=== PATIENT | female | born 1995 | race American Indian/Alaskan Native ===

== ENCOUNTER 2020-01-18 21:19 | Inpatient (IN) | payer OTHER, MEDICAID ==
[2020-01-18 22:44] LABS: Hematocrit 34.6 % (30.3-42.9); Hemoglobin 11.4 gm/dl (10.1-14.3); Mean Corpuscular HGB Conc 33 % (30-34); Mean Corpuscular Volume 79 fl (79-97); Platelet Count 205 K/mm3 (140-440); Red Blood Count 4.36 M/mm3 (3.65-5.03); Red Cell Distribution Width 15.1 % (13.2-15.2)
[2020-01-18] MEDS ORDERED: ePHEDrine SULFATE 50 MG/1 ML INJ IV PRN (23:04)
[2020-01-18] MEDS ORDERED: PROMETHAZINE 25 MG TAB PO PRN (23:04)
[2020-01-18] MEDS ORDERED: DINOPROSTONE 10 MG VAG SUPP VG ONE (23:04)
[2020-01-18] MEDS ORDERED: NALOXONE 0.4 MG/1 ML INJ IV PRN (23:04)
[2020-01-18] MEDS ORDERED: fentaNYL 100 MCG/2 ML INJ IV PRN (23:04)
[2020-01-18] MEDS ORDERED: MINERAL OIL 30 ML ORAL LIQD PO PRN (23:04)
[2020-01-18] MEDS ORDERED: TERBUTALINE 1 MG/1 ML INJ SUB-Q PRN (23:04)
[2020-01-18] MEDS ORDERED: TERBUTALINE 1 MG/1 ML INJ IVP PRN (23:04)
[2020-01-18] MEDS ORDERED: LIDOCAINE (2%) 20 MG/1 ML VIAL 20 ML MDV INFILTRATI ONE (23:04)
[2020-01-18] MEDS ORDERED: ONDANSETRON 4 MG/2 ML INJ IV PRN (23:04)
[2020-01-18] MEDS ORDERED: BUTORPHANOL 2 MG/1 ML INJ IV PRN (23:04)
[2020-01-18] MEDS: LACTATED RINGERS 1,000 ML IV SCH (23:41)
[2020-01-18] MEDS ORDERED: OXYTOCIN 20 UNIT/1000ML DRIP 20 UNITS/1,000 ML BAG IV SCH (23:45)
[2020-01-18] MEDS ORDERED: OXYTOCIN DRIP 30 UNITS/500 ML BAG IV SCH (23:45)
[2020-01-19] MEDS: LACTATED RINGERS 1,000 ML IV SCH ×3 (03:30→19:35)
[2020-01-19] MEDS: GENTAMICIN/NS 120MG/100ML 120 MG/100 ML BAG IV SCH ×3 (05:41→22:07)
[2020-01-19] MEDS ORDERED: GENTAMICIN 40 MG/ML VIAL 2 ML IV SCH (06:00)
[2020-01-19] MEDS: AMPICILLIN/NS 2 GM/100 ML 2 GM/100 ML BAG IV SCH ×3 (07:00→23:49)
[2020-01-19] MEDS ORDERED: miSOPROStol 25 MCG TAB PO SCH (08:00)
--- NOTE | 2020-01-19 10:30 | History and Physical Report ---
History of Present Illness Date of examination: 01/19/20 Date of admission: 01/18/20 21:19 Chief complaint: Presents for scheduled postdates induction of labor History of present illness: Transferred into care from [place] at 17 weeks; uncomplicated course. Past History Past Medical History: neurologic (migraines) Past Surgical History: no surgical history Family/Genetic History: hypertension, cancer Social history: no significant social history, single - Obstetrical History Expected Date of Delivery: 01/11/20 Actual Gestation: 41 Week(s) 1 Day(s) : 1 Medications and Allergies Allergies Allergy/AdvReac Type Severity Reaction Status Date / Time gonsalves Allergy Mild Hives Verified 01/18/20 22:08 Active Meds: Active Medications Butorphanol Tartrate (Stadol) 2 mg IV Q2H PRN PRN Reason: Pain , Severe (7-10) Ephedrine Sulfate (Ephedrine Sulfate) 10 mg IV Q2M PRN PRN Reason: Hypotension Fentanyl (Sublimaze) 100 mcg IV Q2H PRN PRN Reason: Pain,Severe (7-10) LABOR PAIN Last Admin: 01/19/20 05:09 Dose: 100 mcg Documented by: Oxytocin/Sodium Chloride (Pitocin/Ns 20 Unit/1000ml Drip) 20 units in 1,000 mls @ 125 mls/hr IV DIRECT COCO Oxytocin/Sodium Chloride (Pitocin/Ns 30 Unit/500ml) 30 units in 500 mls @ 1 mls/hr IV TITR COCO; Protocol Oxytocin/Sodium Chloride (Pitocin/Ns 30 Unit/500ml) 30 units in 500 mls @ 2 mls/hr IV TITR COCO; Protocol Lactated Ringer's (Lactated Ringers) 1,000 mls @ 125 mls/hr IV DIRECT COCO Last Admin: 01/19/20 03:30 Dose: 125 mls/hr Documented by: Ampicillin Sodium (Ampicillin/Ns 2 Gm/100 Ml) 2 gm in 100 mls @ 100 mls/hr IV Q6HR COCO; Protocol Stop: 01/21/20 00:59 Last Admin: 01/19/20 07:00 Dose: 100 mls/hr Documented by: Gentamicin Sulfate/Sodium Chloride (Gentamicin/Ns 120mg/100ml) 120 mg in 100 mls @ 100 mls/hr IV Q8HR COCO Last Admin: 06/03/20 05:41 Dose: 100 mls/hr Documented by: Mineral Oil (Mineral Oil) 30 ml PO QHS PRN PRN Reason: Constipation Misoprostol (Cytotec) 50 mcg PO Q4H COCO Naloxone HCl (Naloxone) 0.1 mg IV Q2MIN PRN PRN Reason: Res Rate </= 8 or 02 SAT < 92% Ondansetron HCl (Zofran) 4 mg IV Q8H PRN PRN Reason: Nausea And Vomiting Promethazine HCl (Phenergan) 25 mg PO Q6H PRN PRN Reason: Nausea And Vomiting Terbutaline Sulfate (Brethine) 0.25 mg SUB-Q ONCE PRN PRN Reason: Hyperstimulation/Hypertonicity Terbutaline Sulfate (Brethine) 0.25 mg IVP ONCE PRN PRN Reason: Hyperstimulation/Hypertonicity Review of Systems All systems: negative - Vital Signs Vital signs: Vital Signs Pulse Pulse Ox 79 100 01/18/20 21:48 01/18/20 21:48 Temp Pulse Resp BP Pulse Ox 99.1 F 78 20 145/97 100 01/19/20 07:21 01/19/20 09:57 01/19/20 05:09 01/19/20 09:21 01/19/20 09:57 - Physical Exam Breasts: Positive: normal Cardiovascular: Regular rate Lungs: Positive: Clear to auscultation, Normal air movement Abdomen: Positive: normal appearance, normal bowel sounds Genitourinary (Female): Positive: normal external genitalia, normal perenium Vagina: Positive: other (leaking a small amount of clear fluid) Uterus: Positive: enlarged Anus/Rectum: Positive: normal perianal skin - Obstetrical FHR: category 1 Uterine Contraction Monitor Mode: External Cervical Dilatation: 1 (leaking a small amount of clear fluid; states her waer broke at 0300) Cervical Effacement Percentage: 40 station: -3 Uterine Contraction Pattern: Regular Uterine Tone Measurement Phase: Resting Uterine Contraction Intensity: Mild Results Result Diagrams: 01/18/20 22:25 Abnormal lab results 01/18/20 Range/Units 22:25 MCH 26 L (28-32) pg All other labs normal. Assessment and Plan A: IUP @ 41 1/7 Weeks Category I Tracing PROM GBS Negative P: Admit to L&D per Routine Orders Cook's Cervical Ripening Balloon Placed Low-Dose Pitocin
[2020-01-19] MEDS ORDERED: OXYTOCIN DRIP 30 UNITS/500 ML BAG IV SCH ×2 (11:01→14:45)
[2020-01-19] MEDS ORDERED: DEXMEDETOMIDINE 200 MCG/2 ML VIAL IV ONE (14:03)
[2020-01-19] MEDS ORDERED: ePHEDrine SULFATE 50 MG/1 ML INJ IV PRN (14:27)
[2020-01-19] MEDS ORDERED: NALOXONE 2 MG/2 ML INJ IV PRN (14:27)
--- NOTE | 2020-01-19 14:27 | Anesthesia Consultation ---
Anesthesia Consult and Med Hx Date of service: 01/19/20 - Airway Anesthetic Teeth Evaluation: Good ROM Head & Neck: Adequate Mental/Hyoid Distance: Adequate Mallampati Class: Class II Intubation Access Assessment: Good - Pulmonary Exam CTA: Yes - Cardiac Exam Cardiac Exam: RRR - Pre-Operative Health Status ASA Pre-Surgery Classification: ASA2, Emergency Proposed Anesthetic Plan: Epidural, Spinal - Pulmonary Hx Asthma: No COPD: No Hx Pneumonia: No - Cardiovascular System Hx Hypertension: No - Central Nervous System Hx Seizures: No Hx Psychiatric Problems: No - Endocrine Hx Renal Disease: No Hx End Stage Renal Disease: No Hx Hypothyroidism: No Hx Hyperthyroidism: No - Hematic Hx Anemia: No Hx Sickle Cell Disease: No - Other Systems Hx Alcohol Use: No
--- NOTE | 2020-01-19 14:32 | Progress Note ---
Labor Epidural - Labor Epidural Start Time: 14:10 Stop Time: 14:20 Performed by:: ALETHEA ZENDEJAS Procedure: Patient is requesting a laboring epidural for laboring pain. Patient IDed, H&P reviewed, all questions and concerns were answered, and consent was signed. Timeout was performed at bedside. Patient in sitting position. Sterile prep and drape was performed. 3 ml of 1% lidocaine skin wheal at L 3- L 4. 18-gauge Touhy epidural needle was advanced to loss of resistance with air technique. Negative CSF negative blood. Epidural catheter advanced to 15 centimeters. Negative aspiration negative test dose. Sterile dressing applied. Patient tolerated procedure.
[2020-01-19] MEDS: fentaNYL-BUPIV 2 MCG/ML-0.125% 200 MCG/100 ML BAG EPIDURAL SCH ×2 (15:12→23:46)
--- NOTE | 2020-01-19 18:19 | Progress Note ---
Assessment and Plan A: IUP @ 41 1/ Weeks Category II Tracing GBS Negative P: Rupture Hindbag Continue Pitocin Augmentation Subjective - Subjective Date of service: 01/19/20 Interval history: Transferred into care from [place] at 17 weeks; uncomplicated course. Patient reports: movement normal, other (Resting well under epidural anesthesia) Objective - Vital Signs Vital Signs: Vital Signs - 12hr 01/19/20 01/19/20 01/19/20 06:17 06:22 06:27 Temperature Pulse Rate 63 64 70 Blood Pressure O2 Sat by Pulse 99 100 100 Oximetry 01/19/20 01/19/20 01/19/20 06:32 06:37 06:42 Temperature Pulse Rate 65 81 60 Blood Pressure O2 Sat by Pulse 100 100 100 Oximetry 01/19/20 01/19/20 01/19/20 06:47 06:52 06:57 Temperature Pulse Rate 60 58 L 59 L Blood Pressure O2 Sat by Pulse 100 100 100 Oximetry 01/19/20 01/19/20 01/19/20 07:02 07:03 07:07 Temperature Pulse Rate 65 81 71 Blood Pressure 134/65 O2 Sat by Pulse 100 100 Oximetry 01/19/20 01/19/20 01/19/20 07:12 07:17 07:20 Temperature Pulse Rate 68 59 L 62 Blood Pressure 144/82 O2 Sat by Pulse 100 100 Oximetry 01/19/20 01/19/20 01/19/20 07:21 07:22 07:27 Temperature 99.1 F Pulse Rate 58 L 59 L Blood Pressure O2 Sat by Pulse 100 100 Oximetry 01/19/20 01/19/20 01/19/20 07:32 07:37 07:42 Temperature Pulse Rate 55 L 57 L 55 L Blood Pressure O2 Sat by Pulse 100 100 100 Oximetry 01/19/20 01/19/20 01/19/20 07:47 07:52 07:57 Temperature Pulse Rate 53 L 83 71 Blood Pressure O2 Sat by Pulse 100 100 100 Oximetry 01/19/20 01/19/20 01/19/20 08:02 08:07 08:12 Temperature Pulse Rate 71 66 73 Blood Pressure O2 Sat by Pulse 100 100 100 Oximetry 01/19/20 01/19/20 01/19/20 08:17 08:21 08:22 Temperature Pulse Rate 72 65 66 Blood Pressure 157/96 O2 Sat by Pulse 100 100 Oximetry 01/19/20 01/19/20 01/19/20 08:27 08:32 08:37 Temperature Pulse Rate 67 56 L 60 Blood Pressure O2 Sat by Pulse 100 100 100 Oximetry 01/19/20 01/19/20 01/19/20 08:42 08:47 08:52 Temperature Pulse Rate 57 L 55 L 55 L Blood Pressure O2 Sat by Pulse 100 100 100 Oximetry 01/19/20 01/19/20 01/19/20 08:57 09:02 09:07 Temperature Pulse Rate 57 L 57 L 55 L Blood Pressure O2 Sat by Pulse 100 100 100 Oximetry 01/19/20 01/19/20 01/19/20 09:12 09:17 09:21 Temperature Pulse Rate 59 L 56 L 65 Blood Pressure 145/97 O2 Sat by Pulse 100 100 Oximetry 01/19/20 01/19/20 01/19/20 09:22 09:27 09:32 Temperature Pulse Rate 56 L 56 L 54 L Blood Pressure O2 Sat by Pulse 100 100 100 Oximetry 01/19/20 01/19/20 01/19/20 09:37 09:42 09:47 Temperature Pulse Rate 63 70 62 Blood Pressure O2 Sat by Pulse 100 100 100 Oximetry 01/19/20 01/19/20 01/19/20 09:52 09:57 10:50 Temperature 97.3 F L Pulse Rate 51 L 78 Blood Pressure O2 Sat by Pulse 100 100 Oximetry 01/19/20 01/19/20 01/19/20 11:16 11:21 11:26 Temperature Pulse Rate 59 L 61 52 L Blood Pressure 147/76 O2 Sat by Pulse 100 99 99 Oximetry 01/19/20 01/19/20 01/19/20 11:28 11:31 11:36 Temperature Pulse Rate 92 H 74 61 Blood Pressure O2 Sat by Pulse 83 L 100 100 Oximetry 01/19/20 01/19/20 01/19/20 11:41 11:45 11:46 Temperature Pulse Rate 57 L 57 L 54 L Blood Pressure 148/70 O2 Sat by Pulse 100 100 Oximetry 01/19/20 01/19/20 01/19/20 11:51 11:56 12:01 Temperature Pulse Rate 57 L 59 L 67 Blood Pressure O2 Sat by Pulse 98 100 100 Oximetry 01/19/20 01/19/20 01/19/20 12:06 12:11 12:15 Temperature Pulse Rate 65 58 L 56 L Blood Pressure 137/75 O2 Sat by Pulse 100 100 Oximetry 01/19/20 01/19/20 01/19/20 12:16 12:21 12:26 Temperature Pulse Rate 53 L 54 L 50 L Blood Pressure O2 Sat by Pulse 100 100 100 Oximetry 01/19/20 01/19/20 01/19/20 12:31 12:36 12:41 Temperature Pulse Rate 52 L 52 L 55 L Blood Pressure O2 Sat by Pulse 100 100 100 Oximetry 01/19/20 01/19/20 01/19/20 12:45 12:56 13:00 Temperature 97.4 F L Pulse Rate 61 Blood Pressure 159/79 O2 Sat by Pulse 86 Oximetry 01/19/20 01/19/20 01/19/20 13:01 13:05 13:10 Temperature Pulse Rate 66 93 H 67 Blood Pressure O2 Sat by Pulse 79 L 100 99 Oximetry 01/19/20 01/19/20 01/19/20 13:15 13:16 13:20 Temperature Pulse Rate 65 81 78 Blood Pressure 125/81 O2 Sat by Pulse 100 99 Oximetry 01/19/20 01/19/20 01/19/20 13:25 13:30 13:35 Temperature Pulse Rate 67 67 72 Blood Pressure O2 Sat by Pulse 99 99 99 Oximetry 01/19/20 01/19/20 01/19/20 13:40 13:45 13:46 Temperature Pulse Rate 84 67 76 Blood Pressure 119/84 O2 Sat by Pulse 98 100 Oximetry 01/19/20 01/19/20 01/19/20 13:50 13:55 14:00 Temperature Pulse Rate 76 74 73 Blood Pressure O2 Sat by Pulse 100 100 100 Oximetry 01/19/20 01/19/20 01/19/20 14:05 14:11 14:12 Temperature Pulse Rate 76 33 L Blood Pressure O2 Sat by Pulse 100 77 L 62 L Oximetry 01/19/20 01/19/20 01/19/20 14:16 14:21 14:24 Temperature Pulse Rate 109 H 97 H 108 H Blood Pressure 165/76 O2 Sat by Pulse 94 96 84 Oximetry 01/19/20 01/19/20 01/19/20 14:27 14:32 14:37 Temperature Pulse Rate 80 67 74 Blood Pressure 123/71 O2 Sat by Pulse 100 98 100 Oximetry 01/19/20 01/19/20 01/19/20 14:42 14:45 14:47 Temperature Pulse Rate 63 64 59 L Blood Pressure 111/62 O2 Sat by Pulse 98 100 Oximetry 01/19/20 01/19/20 01/19/20 14:52 14:57 15:02 Temperature Pulse Rate 56 L 57 L 57 L Blood Pressure O2 Sat by Pulse 99 99 99 Oximetry 01/19/20 01/19/20 01/19/20 15:07 15:12 15:15 Temperature Pulse Rate 55 L 54 L 54 L Blood Pressure 123/75 O2 Sat by Pulse 99 99 Oximetry 01/19/20 01/19/20 01/19/20 15:17 15:22 15:27 Temperature Pulse Rate 54 L 56 L 59 L Blood Pressure O2 Sat by Pulse 100 99 98 Oximetry 01/19/20 01/19/20 01/19/20 15:32 15:37 15:42 Temperature Pulse Rate 56 L 57 L 61 Blood Pressure O2 Sat by Pulse 99 98 98 Oximetry 01/19/20 01/19/20 01/19/20 15:45 15:47 15:52 Temperature Pulse Rate 55 L 65 68 Blood Pressure 113/72 O2 Sat by Pulse 99 80 L Oximetry 01/19/20 01/19/20 01/19/20 15:57 16:02 16:04 Temperature Pulse Rate 54 L 54 L 53 L Blood Pressure O2 Sat by Pulse 100 100 68 L Oximetry 01/19/20 01/19/20 01/19/20 16:07 16:12 16:16 Temperature Pulse Rate 55 L 52 L 52 L Blood Pressure 118/73 O2 Sat by Pulse 100 100 Oximetry 01/19/20 01/19/20 01/19/20 16:17 16:22 16:27 Temperature Pulse Rate 50 L 51 L 50 L Blood Pressure O2 Sat by Pulse 100 100 100 Oximetry 01/19/20 01/19/20 01/19/20 16:32 16:37 16:42 Temperature Pulse Rate 49 L 51 L 50 L Blood Pressure O2 Sat by Pulse 100 100 100 Oximetry 01/19/20 01/19/20 01/19/20 16:45 16:47 16:52 Temperature Pulse Rate 53 L 51 L 52 L Blood Pressure 122/73 O2 Sat by Pulse 100 100 Oximetry 01/19/20 01/19/20 01/19/20 16:57 17:00 17:02 Temperature Pulse Rate 54 L 32 L 53 L Blood Pressure O2 Sat by Pulse 100 80 L 100 Oximetry 01/19/20 01/19/20 01/19/20 17:07 17:12 17:16 Temperature Pulse Rate 50 L 50 L 49 L Blood Pressure 111/57 O2 Sat by Pulse 100 100 Oximetry 01/19/20 01/19/20 01/19/20 17:17 17:22 17:27 Temperature Pulse Rate 52 L 52 L 51 L Blood Pressure O2 Sat by Pulse 100 100 100 Oximetry 01/19/20 01/19/20 01/19/20 17:32 17:37 17:42 Temperature Pulse Rate 57 L 51 L 52 L Blood Pressure O2 Sat by Pulse 100 100 100 Oximetry 01/19/20 01/19/20 01/19/20 17:45 17:47 17:52 Temperature Pulse Rate 51 L 52 L 57 L Blood Pressure 111/59 O2 Sat by Pulse 100 100 Oximetry 01/19/20 01/19/20 01/19/20 17:57 18:02 18:07 Temperature Pulse Rate 51 L 52 L 70 Blood Pressure O2 Sat by Pulse 100 100 100 Oximetry 01/19/20 18:12 Temperature Pulse Rate 62 Blood Pressure O2 Sat by Pulse 100 Oximetry - Exam Breasts: normal Cardiovascular: Regular rate Lungs: Normal air movement Abdomen: Present: normal appearance, soft, normal bowel sounds Uterus: Present: normal, firm, fundal height above umbilicus FHR: category 2 FHR comments: FHR: 130, moderate varability, -accels, +early decels, +isolated varabile decels Uterine Contraction Monitor Mode: External Cervical Dilatation: 5 (Rupture of hindbag: large amount of clear fluid at 1815) Cervical Effacement Percentage: 70 station: -2 Uterine Contraction Pattern: Regular Uterine Tone Measurement Phase: Resting Uterine Contraction Intensity: Moderate - Labs Labs: Abnormal Labs 01/18/20 22:25 MCH 26 L Laboratory Results - last 24 hr 01/18/20 01/18/20 01/18/20 22:25 22:25 22:25 WBC 8.9 RBC 4.36 Hgb 11.4 Hct 34.6 MCV 79 MCH 26 L MCHC 33 RDW 15.1 Plt Count 205 Syphilis IgG Antibody Non-reactive Blood Type B POSITIVE Antibody Screen Negative
[2020-01-20] MEDS: LACTATED RINGERS 1,000 ML IV SCH (01:48)
[2020-01-20] MEDS: GENTAMICIN/NS 120MG/100ML 120 MG/100 ML BAG IV SCH (06:46)
[2020-01-20] MEDS: fentaNYL-BUPIV 2 MCG/ML-0.125% 200 MCG/100 ML BAG EPIDURAL SCH (08:15)
[2020-01-20] MEDS ORDERED: BICITRA ORAL LIQD 30ML PO ONE (10:29)
[2020-01-20] MEDS ORDERED: FAMOTIDINE 20 MG/2 ML INJ IV ONE ×2 (10:30→11:00)
[2020-01-20] MEDS ORDERED: METOCLOPRAMIDE 10 MG/2 ML INJ ONE (10:30)
[2020-01-20] MEDS ORDERED: BICITRA ORAL LIQD 30ML ONE (10:30)
[2020-01-20] MEDS ORDERED: ceFAZolin/Water 2 GM/20 ML 2 GM/20 ML SYRINGE IV ONE (10:31)
--- NOTE | 2020-01-20 10:32 | Progress Note ---
Subjective - Subjective Date of service: 01/20/20 Interval history: prolonged variable noted with late component cervix unchanged 9cm/100%/-1, +ve edema minimal caput plan for delivery informed consent obtained npo, on sergo to or for procedure Melinda Howard MD Patient reports: movement normal, other (Resting well under epidural anesthesia) Objective - Vital Signs Vital Signs: Vital Signs - 12hr 01/19/20 01/19/20 01/19/20 22:32 22:37 22:42 Temperature Pulse Rate 57 L 66 53 L Blood Pressure O2 Sat by Pulse 100 100 100 Oximetry 01/19/20 01/19/20 01/19/20 22:45 22:47 22:52 Temperature Pulse Rate 50 L 51 L 50 L Blood Pressure 135/73 O2 Sat by Pulse 100 100 Oximetry 01/19/20 01/19/20 01/19/20 22:57 23:02 23:07 Temperature Pulse Rate 52 L 53 L 49 L Blood Pressure O2 Sat by Pulse 100 100 100 Oximetry 01/19/20 01/19/20 01/19/20 23:12 23:15 23:17 Temperature Pulse Rate 53 L 49 L 51 L Blood Pressure 139/75 O2 Sat by Pulse 100 100 Oximetry 01/19/20 01/19/20 01/19/20 23:22 23:27 23:31 Temperature Pulse Rate 53 L 58 L 60 Blood Pressure O2 Sat by Pulse 100 100 0 L Oximetry 01/19/20 01/19/20 01/19/20 23:32 23:37 23:42 Temperature Pulse Rate 58 L 56 L 57 L Blood Pressure O2 Sat by Pulse 100 100 100 Oximetry 01/19/20 01/19/20 01/19/20 23:45 23:47 23:48 Temperature Pulse Rate 54 L 58 L 56 L Blood Pressure 142/75 O2 Sat by Pulse 87 81 L Oximetry 01/19/20 01/19/20 01/20/20 23:52 23:57 00:02 Temperature Pulse Rate 49 L 51 L 53 L Blood Pressure O2 Sat by Pulse 100 100 100 Oximetry 01/20/20 01/20/20 01/20/20 00:07 00:12 00:15 Temperature Pulse Rate 51 L 50 L 48 L Blood Pressure 147/71 O2 Sat by Pulse 100 100 Oximetry 01/20/20 01/20/20 01/20/20 00:17 00:22 00:27 Temperature Pulse Rate 52 L 50 L 49 L Blood Pressure O2 Sat by Pulse 100 100 100 Oximetry 01/20/20 01/20/20 01/20/20 00:32 00:37 00:42 Temperature Pulse Rate 53 L 55 L 52 L Blood Pressure O2 Sat by Pulse 100 100 100 Oximetry 01/20/20 01/20/20 01/20/20 00:45 00:47 00:52 Temperature Pulse Rate 50 L 55 L 53 L Blood Pressure 144/65 O2 Sat by Pulse 100 100 Oximetry 01/20/20 01/20/20 01/20/20 00:57 01:02 01:07 Temperature Pulse Rate 54 L 58 L 88 Blood Pressure O2 Sat by Pulse 100 100 100 Oximetry 01/20/20 01/20/20 01/20/20 01:12 01:17 01:22 Temperature Pulse Rate 69 65 54 L Blood Pressure 134/87 O2 Sat by Pulse 100 100 100 Oximetry 01/20/20 01/20/20 01/20/20 01:27 01:32 01:37 Temperature Pulse Rate 51 L 54 L 64 Blood Pressure O2 Sat by Pulse 100 100 100 Oximetry 01/20/20 01/20/20 01/20/20 01:42 01:46 01:47 Temperature Pulse Rate 58 L 63 66 Blood Pressure 128/82 O2 Sat by Pulse 100 100 Oximetry 01/20/20 01/20/20 01/20/20 01:52 01:57 02:02 Temperature Pulse Rate 70 58 L 62 Blood Pressure O2 Sat by Pulse 100 100 100 Oximetry 01/20/20 01/20/20 01/20/20 02:07 02:12 02:15 Temperature Pulse Rate 56 L 63 70 Blood Pressure 139/66 O2 Sat by Pulse 100 100 82 L Oximetry 01/20/20 01/20/20 01/20/20 02:17 02:22 02:27 Temperature Pulse Rate 62 57 L 54 L Blood Pressure O2 Sat by Pulse 99 100 100 Oximetry 01/20/20 01/20/20 01/20/20 02:32 02:37 02:42 Temperature Pulse Rate 56 L 51 L 73 Blood Pressure O2 Sat by Pulse 97 100 94 Oximetry 01/20/20 01/20/20 01/20/20 02:44 02:47 02:49 Temperature Pulse Rate 80 90 45 L Blood Pressure O2 Sat by Pulse 81 L 96 75 L Oximetry 01/20/20 01/20/20 01/20/20 02:52 02:57 03:01 Temperature Pulse Rate 47 L 61 46 L Blood Pressure O2 Sat by Pulse 58 L 73 L 72 L Oximetry 01/20/20 01/20/20 01/20/20 03:02 03:07 03:08 Temperature Pulse Rate 53 L 55 L 60 Blood Pressure O2 Sat by Pulse 100 90 58 L Oximetry 01/20/20 01/20/20 01/20/20 03:12 03:16 03:17 Temperature Pulse Rate 52 L 53 L 51 L Blood Pressure 151/74 O2 Sat by Pulse 100 100 Oximetry 01/20/20 01/20/20 01/20/20 03:23 03:28 03:33 Temperature Pulse Rate 51 L 53 L 50 L Blood Pressure O2 Sat by Pulse 100 100 100 Oximetry 01/20/20 01/20/20 01/20/20 03:38 03:43 03:46 Temperature Pulse Rate 50 L 54 L 51 L Blood Pressure 137/71 O2 Sat by Pulse 100 100 Oximetry 01/20/20 01/20/20 01/20/20 03:48 03:53 03:58 Temperature Pulse Rate 49 L 47 L 52 L Blood Pressure O2 Sat by Pulse 100 100 100 Oximetry 01/20/20 01/20/20 01/20/20 04:03 04:08 04:13 Temperature Pulse Rate 56 L 50 L 49 L Blood Pressure O2 Sat by Pulse 100 100 100 Oximetry 01/20/20 01/20/20 01/20/20 04:15 04:18 04:23 Temperature Pulse Rate 48 L 49 L 52 L Blood Pressure 144/74 O2 Sat by Pulse 100 100 Oximetry 01/20/20 01/20/20 01/20/20 04:29 04:34 04:39 Temperature Pulse Rate 58 L 53 L 56 L Blood Pressure O2 Sat by Pulse 100 100 100 Oximetry 01/20/20 01/20/20 01/20/20 04:44 04:46 04:49 Temperature Pulse Rate 59 L 60 80 Blood Pressure O2 Sat by Pulse 88 77 L 100 Oximetry 01/20/20 01/20/20 01/20/20 04:51 04:54 04:58 Temperature Pulse Rate 86 98 H 106 H Blood Pressure O2 Sat by Pulse 82 L 72 L 74 L Oximetry 01/20/20 01/20/20 01/20/20 05:03 05:08 05:11 Temperature Pulse Rate 73 59 L 87 Blood Pressure O2 Sat by Pulse 100 99 70 L Oximetry 01/20/20 01/20/20 01/20/20 05:13 05:17 05:18 Temperature Pulse Rate 80 57 L 69 Blood Pressure 139/78 O2 Sat by Pulse 59 L 99 Oximetry 01/20/20 01/20/20 01/20/20 05:23 05:27 05:28 Temperature Pulse Rate 60 61 66 Blood Pressure O2 Sat by Pulse 100 78 L 86 Oximetry 01/20/20 01/20/20 01/20/20 05:33 05:36 05:38 Temperature Pulse Rate 59 L 69 59 L Blood Pressure O2 Sat by Pulse 89 84 94 Oximetry 01/20/20 01/20/20 01/20/20 05:43 05:45 05:48 Temperature Pulse Rate 58 L 64 57 L Blood Pressure 122/75 O2 Sat by Pulse 84 100 Oximetry 01/20/20 01/20/20 01/20/20 05:53 05:58 06:03 Temperature Pulse Rate 63 62 63 Blood Pressure O2 Sat by Pulse 100 97 100 Oximetry 01/20/20 01/20/20 01/20/20 06:08 06:13 06:15 Temperature Pulse Rate 61 60 70 Blood Pressure 123/77 O2 Sat by Pulse 99 99 Oximetry 01/20/20 01/20/20 01/20/20 06:18 06:23 06:28 Temperature Pulse Rate 59 L 65 68 Blood Pressure O2 Sat by Pulse 98 99 99 Oximetry 01/20/20 01/20/20 01/20/20 06:33 06:38 06:43 Temperature Pulse Rate 100 H 70 79 Blood Pressure O2 Sat by Pulse 85 97 96 Oximetry 01/20/20 01/20/20 01/20/20 06:45 06:48 06:53 Temperature Pulse Rate 70 94 H 59 L Blood Pressure 153/92 O2 Sat by Pulse 84 98 72 L Oximetry 01/20/20 01/20/20 01/20/20 06:56 06:58 07:03 Temperature Pulse Rate 95 H 75 71 Blood Pressure O2 Sat by Pulse 76 L 98 100 Oximetry 06/04/20 06/04/20 06/04/20 07:05 07:09 07:10 Temperature 98.7 F Pulse Rate 101 H 96 H Blood Pressure O2 Sat by Pulse 83 L 96 Oximetry 01/20/20 01/20/20 01/20/20 07:14 07:15 07:19 Temperature Pulse Rate 83 91 H 80 Blood Pressure 175/105 O2 Sat by Pulse 100 100 Oximetry 01/20/20 01/20/20 01/20/20 07:24 07:29 07:34 Temperature Pulse Rate 93 H 70 70 Blood Pressure O2 Sat by Pulse 99 100 100 Oximetry 01/20/20 01/20/20 01/20/20 07:39 07:44 07:45 Temperature Pulse Rate 86 66 64 Blood Pressure 170/97 O2 Sat by Pulse 100 100 0 L Oximetry 01/20/20 01/20/20 01/20/20 07:49 07:54 07:58 Temperature Pulse Rate 64 63 68 Blood Pressure 149/90 O2 Sat by Pulse 100 100 Oximetry 01/20/20 01/20/20 01/20/20 07:59 08:04 08:09 Temperature Pulse Rate 66 63 68 Blood Pressure O2 Sat by Pulse 100 100 100 Oximetry 01/20/20 01/20/20 01/20/20 08:14 08:16 08:19 Temperature Pulse Rate 58 L 59 L 63 Blood Pressure 141/82 O2 Sat by Pulse 99 99 Oximetry 01/20/20 01/20/20 01/20/20 08:24 08:29 08:34 Temperature Pulse Rate 62 60 62 Blood Pressure O2 Sat by Pulse 100 99 99 Oximetry 01/20/20 01/20/20 01/20/20 08:39 08:44 08:45 Temperature Pulse Rate 67 58 L 58 L Blood Pressure 130/74 O2 Sat by Pulse 98 98 Oximetry 01/20/20 01/20/20 01/20/20 08:49 08:54 08:59 Temperature Pulse Rate 55 L 59 L 57 L Blood Pressure O2 Sat by Pulse 99 98 98 Oximetry 01/20/20 01/20/20 01/20/20 09:04 09:09 09:14 Temperature Pulse Rate 60 58 L 59 L Blood Pressure O2 Sat by Pulse 99 98 98 Oximetry 01/20/20 01/20/20 01/20/20 09:15 09:19 09:24 Temperature Pulse Rate 54 L 53 L 55 L Blood Pressure 146/82 O2 Sat by Pulse 99 99 Oximetry 01/20/20 01/20/20 01/20/20 09:29 09:34 09:39 Temperature Pulse Rate 56 L 54 L 55 L Blood Pressure O2 Sat by Pulse 99 100 100 Oximetry 01/20/20 01/20/20 01/20/20 09:44 09:45 09:49 Temperature Pulse Rate 55 L 52 L 52 L Blood Pressure 119/75 O2 Sat by Pulse 99 100 Oximetry 01/20/20 01/20/20 01/20/20 09:54 09:59 10:04 Temperature Pulse Rate 52 L 52 L 54 L Blood Pressure O2 Sat by Pulse 100 100 100 Oximetry 01/20/20 01/20/20 01/20/20 10:09 10:14 10:15 Temperature Pulse Rate 54 L 60 58 L Blood Pressure 148/82 O2 Sat by Pulse 100 100 Oximetry 01/20/20 01/20/20 01/20/20 10:16 10:19 10:24 Temperature Pulse Rate 56 L 53 L 65 Blood Pressure O2 Sat by Pulse 72 L 100 100 Oximetry 01/20/20 10:25 Temperature Pulse Rate 66 Blood Pressure O2 Sat by Pulse 73 L Oximetry - Labs Labs: Abnormal Labs 01/18/20 22:25 MCH 26 L
[2020-01-20] MEDS ORDERED: LIDOCAINE 2%/EPINEPHRINE 1:200,000 VIAL (20 ML) INFILTRATI ONE (10:36)
[2020-01-20] MEDS ORDERED: SODIUM CHLORIDE 0.9% IRR 1,500 ML BOTTLE IR ONE (10:45)
[2020-01-20] MEDS ORDERED: WATER FOR IRRIG STERILE 1,500 ML BOTTLE IR ONE (10:45)
[2020-01-20] MEDS ORDERED: ONDANSETRON 4 MG/2 ML INJ ONE (10:46)
[2020-01-20] MEDS ORDERED: OXYTOCIN 20 UNIT/1000ML DRIP 20 UNITS/1,000 ML BAG IV SCH ×2 (11:00→12:00)
[2020-01-20] MEDS ORDERED: LACTATED RINGERS 1,000 ML IV SCH (11:00)
[2020-01-20] MEDS ORDERED: METOCLOPRAMIDE 10 MG/2 ML INJ IV ONE (11:00)
[2020-01-20] MEDS ORDERED: METHYLERGONOVINE MALEATE 0.2 MG/ML VIAL IM ONE (11:08)
[2020-01-20] MEDS ORDERED: dexAMETHasone 20 MG/5 ML VIAL ONE (11:13)
[2020-01-20] MEDS ORDERED: OXYTOCIN 10 UNIT/1 ML INJ ONE (11:13)
[2020-01-20] MEDS ORDERED: KETOROLAC 30 MG/1 ML INJ ONE (11:13)
[2020-01-20] MEDS ORDERED: diphenhydrAMINE 50 MG/ML VIAL ONE (11:13)
[2020-01-20] MEDS ORDERED: HYDROmorphone 1 MG/1 ML INJ IV PRN (11:30)
--- NOTE | 2020-01-20 11:49 | Procedure Note ---
OB Delivery Note - Delivery Date of Delivery: 01/20/20 Surgeon: JOSÉ BETANCOURT Estimated blood loss: other (800ml) - Section Preop diagnosis: arrest of dilation, nonreassuring FHR tracing Postop diagnosis: same section procedure: primary low transverse Disposition: PACU Complications: none Narrative: Preoperative diagnosis: NRFHT, arrest of dilatation Postoperative diagnosis: same Procedure: primary low transverse section via pfannenstiel incision Surgeon : Dr José Betancourt Assist: scrub Anesthesia: epidural Complications: none Drains: messina to gravity EBL 800ml IV fluids: 1100ml Urine output: 100ml Findings:normal uterus, tubes and ovaries bilaterally. Viable male,weight 3142gms, 8,9. Procedure: informed consent taken in 2012 with family present. All questions and concerns addressed. R/B/C reviewed. She was taken to the OR where excellent ep idrural anesthesia was confirmed. She was placed in the dorsal supine position with a leftward tilt. She was prepped and draped in a sterile fashion. A time out was verified. An Latanya clamp was used to assure adequate analgesia. A Pfannenstiel skin incision was made, taken down through the underlying fascia sharply and extended laterally with curved Mitchell scissors. The superior and inferior aspect of the fascial incision was grasped with Michael clamps and the rectus muscles dissected off sharply. The abdomen was entered sharply in the midline and extended laterally and inferiorly sharply with good visualization of the underlying structures. The vesicouterine peritoneum was grasped with [place] Islander forceps and incised sharply with Metzenbaum scissors and extended laterlaly sharply. The uterine incision was made sharply with a scalpel, taken down to the amnion and extended inferiorly and superiorly bluntly. Thick meconium noted upon uterine entry. The bladder blade removed. Baby delivered atraumatically in cephalic presentation, no nuchal cord. Spontaneous cry at delivery.The cord was clamped and cut and baby handed to waiting NICU staff. An intact placenta with three vessel cord delivered manually. The uterus cleared of all clots and debris. The uterus was exteriorized and the uterine incision closed with 3 layers of 0-Vicryl. The abdomen was irrigated with warm normal saline and the uterus placed back in the abdomen. A second look at the uterine incision assured excellent hemostasis. The peritoneum closed with 3-0 vicryl. The rectus muscles approximated with 3-0 vicryl with good hemostasis. The fascia closed with 0-Vicryl in the usual fashion, and the underlying structures closed with interrupted suture of O-Vicryl. The skin closed with monocryl and a pressure dressing applied. Mom and baby stable to . Patient hemodynamically stable in PACU. EBL 800ml Kim SAAVEDRA - Infant B at 1 minute: 8 at 5 minutes: 9 Gender: Male (weight 3142gms)
--- NOTE | 2020-01-20 12:01 | Anesthesia Day of Surgery ---
Anesthesia Day of Surgery - Day of Surgery Patient Examined: Yes Patient H&P Reviewed: Yes Patient is NPO: No (clear liquids <2hrs)
--- NOTE | 2020-01-20 12:02 | Post Anesthesia Evaluation ---
- Post Anesthesia Evaluation Patient Participated: Yes Airway Patent: Yes Stable Respiratory Function: Yes Nausea/Vomiting: No Temp > 96.8F: Yes Pain Manageable: Yes Adequeate Hydration: Yes Anesthesia Complications: No Block Receding Appropriately: Yes Patient on Ventilator: No
[2020-01-20] MEDS ORDERED: LANOLIN/ZINC/DIMETHICONE (LANSINOH) 7 GM TP PRN ×2 (12:30→15:58)
[2020-01-20] MEDS ORDERED: WITCH HAZEL/ GLYCERIN PAD TP PRN ×2 (12:30→15:58)
[2020-01-20] MEDS ORDERED: PROMETHAZINE 25 MG RECT SUPP PR PRN (12:30)
[2020-01-20] MEDS ORDERED: NALOXONE 0.4 MG/1 ML INJ IV PRN ×2 (12:30→13:00)
[2020-01-20] MEDS ORDERED: PROMETHAZINE 25 MG TAB PO PRN (12:30)
[2020-01-20] MEDS ORDERED: ONDANSETRON 4 MG/2 ML INJ IV PRN (13:00)
[2020-01-20] MEDS: D5W/LACTATED RINGERS 1,000 ML IV SCH ×2 (14:39→22:35)
[2020-01-20] MEDS ORDERED: MORPHINE 2 MG/1 ML INJ IV PRN (15:02)
[2020-01-20] MEDS: MORPHINE 4 MG/1 ML INJ IV PRN ×2 (17:08→21:03)
[2020-01-20] MEDS: HYDROcodone/ACETAMINOPHEN 5-325 MG TAB PO PRN (19:58)
[2020-01-21] MEDS: MORPHINE 4 MG/1 ML INJ IV PRN ×2 (00:24→07:46)
[2020-01-21 00:50] LABS: Hematocrit 28.2 % (30.3-42.9); Hemoglobin 9.5 gm/dl (10.1-14.3)
[2020-01-21] MEDS: HYDROcodone/ACETAMINOPHEN 5-325 MG TAB PO PRN ×2 (04:19→10:04)
[2020-01-21 06:12] LABS: Hematocrit 27.8 % (30.3-42.9); Hemoglobin 9.1 gm/dl (10.1-14.3)
--- NOTE | 2020-01-21 10:02 | Progress Note ---
Assessment and Plan - Patient Problems (1) Status post primary low transverse section Current Visit: Yes Status: Acute Plan to address problem: Continue routine PP orders Keep drsg clean and dry, remove on POD#2 Increase [place] to 2 tabs q 6 hrs Anticipate d/c home in 24-48 hrs (2) Anemia Current Visit: Yes Status: Acute Qualifiers: Anemia type: other cause Other causes of anemia: acute posthemorrhagic Qualified Code(s): D62 - Acute posthemorrhagic anemia Plan to address problem: Continue daily oral iron supplementation as directed Increase iron rich foods into diet Subjective - Subjective Date of service: 01/21/20 Principal diagnosis: S/P primary LTCS; POD#1 Interval history: See admission H & P; OB operative note and PP progress notes Patient reports: appetite normal, voiding normally, pain poorly controlled, ambulating normally, no flatus, no bowel movement : doing well, bottle feeding (and ) Objective - Vital Signs Latest vital signs: Vital Signs Temp Pulse Resp BP BP Pulse Ox 01/21/20 04:56 97.8 F 69 20 132/84 98 01/20/20 23:59 98.0 F 66 20 140/75 99 01/20/20 20:48 98.2 F 63 20 138/85 100 01/20/20 19:58 20 01/20/20 16:25 98 F 72 18 146/80 98 01/20/20 13:22 98.4 F 60 18 149/87 100 01/20/20 12:40 80 18 136/76 100 01/20/20 12:25 60 20 142/84 100 01/20/20 12:10 64 18 128/80 99 01/20/20 12:05 65 18 135/84 100 01/20/20 12:00 76 22 132/69 98 01/20/20 11:55 77 14 124/56 98 01/20/20 11:50 98.3 F 01/20/20 10:25 66 73 L 01/20/20 10:24 65 100 01/20/20 10:19 53 L 100 01/20/20 10:16 56 L 72 L 01/20/20 10:15 58 L 148/82 01/20/20 10:14 60 100 01/20/20 10:09 54 L 100 01/20/20 10:04 54 L 100 01/20/20 09:59 52 L 100 Intake and Output 01/20/20 01/21/20 01/21/20 23:59 07:59 15:59 Intake Total 1471.667 240 Output Total 620 1600 500 Balance 851.667 -1360 -500 Intake: IV 991.667 D5lr 1,000 ml @ 125 mls/ 991.667 hr IV DIRECT COCO Rx#: [id number] Oral 480 240 Output: Urine 620 1600 500 Indwelling Catheter 620 1000 Void 600 500 Other: Total, Intake Amount 240 240 Total, Output Amount 200 600 500 # Voids Void 1 - Exam Breasts: Present: normal Cardiovascular: Present: Regular rate Lungs: Present: Normal air movement Abdomen: Present: soft, tenderness Uterus: Present: firm, fundal height below umbilicus (U-2) Extremities: Present: edema (bilat ankles/feet, 1+) Deep Tendon Reflex Grade: Normal +2 Incision: Present: dressed (no shadow drainage or bleeding noted) - Labs Labs: Abnormal lab results 01/21/20 01/21/20 Range/Units 00:18 05:30 Hgb 9.5 L 9.1 L (10.1-14.3) gm/dl Hct 28.2 L D 27.8 L (30.3-42.9) %
[2020-01-21] MEDS: FERROUS SULFATE 325 MG TAB PO SCH ×2 (10:03→22:13)
[2020-01-21] MEDS: IBUPROFEN 800 MG TAB PO PRN ×2 (12:17→22:13)
[2020-01-22] MEDS ORDERED: DIPHtheria,PERTUSSIS(ACELL),TETANUS VACCINE/PF 0.5 ML VIAL IM ONE (06:14)
[2020-01-22] MEDS: FERROUS SULFATE 325 MG TAB PO SCH ×2 (10:02→22:25)
--- NOTE | 2020-01-22 11:35 | Progress Note ---
Assessment and Plan A: /postop day 2 S/P primary LTCS. Anemia. Heart murmur. P: Encouraged ambulation. Continue iron supplementation. Cardiology cons ultation. Subjective - Subjective Date of service: 01/22/20 Principal diagnosis: S/P primary LTCS; POD#2 Interval history: Has not eaten a regular diet yet; passing gas. Will advance diet to regular diet. Patient reports: appetite normal, voiding normally, pain well controlled, flatus, ambulating normally, no dizzy ambulation, no nauseated [place]: doing well Objective - Vital Signs Latest vital signs: Vital Signs Temp Pulse Resp BP BP Pulse Ox 01/22/20 07:39 97.8 F 12 124/79 01/22/20 00:33 98.1 F 65 18 122/73 100 01/21/20 22:13 18 01/21/20 16:25 97.9 F 68 18 131/78 97 Intake and Output 01/21/20 01/22/20 01/22/20 23:59 07:59 15:59 Intake Total 720 480 Balance 720 480 Intake: Oral 240 Intake, Free Water 480 480 Other: Total, Intake Amount 240 Voiding Method Toilet # Voids Void 2 2 - Exam Cardiovascular: Present: Regular rate, Other (murmur heard) Lungs: Present: Clear to auscultation Abdomen: Present: normal appearance, soft, normal bowel sounds. Absent: distention, tenderness, guarding, rigidity Uterus: Present: normal, firm, fundal height below umbilicus. Absent: bogginess, tenderness Extremities: Present: normal. Absent: tenderness Incision: Present: normal, dry, intact
[2020-01-22] MEDS: HYDROcodone/ACETAMINOPHEN 5-325 MG TAB PO PRN (15:45)
[2020-01-23] MEDS: IBUPROFEN 800 MG TAB PO PRN ×2 (07:04→16:34)
[2020-01-23] MEDS: HYDROcodone/ACETAMINOPHEN 5-325 MG TAB PO PRN (09:26)
[2020-01-23] MEDS: FERROUS SULFATE 325 MG TAB PO SCH (09:27)
--- NOTE | 2020-01-23 11:59 | Progress Note ---
Assessment and Plan A: day 3 S/P primary LTCS. Anemia. Heart murmur. P: Obtain EKG. Per Dr. Babcock, if EKG is normal, patient may be discharged home today with outpatient cardiology referral. Subjective - Subjective Date of service: 01/23/20 Principal diagnosis: S/P primary LTCS; POD#3 Interval history: /postop day 3. Patient requests to be discharged today. Patient has a heart murmur (new). Has not yet been seen by cardiology. Patient denies any symptoms. She denies chest pain, SOB, dizziness, fatigue, leg pain, or any other problems. Consulted with Dr. Babcock re: patient's desire for discharge and patient's new heart murmur. Dr. Babcock states to get an EKG and if this is normal, patient may be discharged home today and may have cardiology appointment as an outpatient. Discussed this with patient and patient is in agreement with this plan. Patient reports: appetite normal, voiding normally, pain well controlled, flatus, ambulating normally, no dizzy ambulation, no nauseated : doing well Objective - Vital Signs Latest vital signs: Vital Signs Temp Pulse Resp BP BP Pulse Ox 01/23/20 09:26 20 01/23/20 08:50 97.7 F 98 H 20 132/79 01/23/20 07:04 18 01/23/20 00:00 98.6 F 74 16 118/71 01/22/20 16:21 98.1 F 68 14 114/96 97 Intake and Output 01/22/20 01/23/20 01/23/20 23:59 07:59 15:59 Intake Total 1900 320 120 Balance 1900 320 120 Intake: Oral 1600 320 120 Intake, Free Water 300 Other: Total, Intake Amount 800 320 120 Voiding Method Toilet # Voids 1 Void 1 1 1 # Bowel Movements 0 - Exam Cardiovascular: Present: Regular rate, Other (Murmur heard) Lungs: Present: Clear to auscultation Abdomen: Present: normal appearance, soft, normal bowel sounds. Absent: distention, tenderness, guarding, rigidity Uterus: Present: normal, firm, fundal height below umbilicus. Absent: bogginess, tenderness Extremities: Present: normal. Absent: tenderness, edema Incision: Present: normal, dry, intact
--- NOTE | 2020-01-23 12:48 | Consultation ---
History of Present Illness Consult date: 01/23/20 Requesting physician: RENEE TAYLOR History of present illness: 24-year-old female who is postop day 2 of section of a healthy baby boy is noted to have a new murmur on exam. Of note the patient denies any syncope, chest pain, shortness of breath, leg edema, or lightheadedness. Past History Past Medical History: other Social history: no significant social history, single. denies: alcohol abuse, prescription drug abuse Medications and Allergies Allergies Allergy/AdvReac Type Severity Reaction Status Date / Time gonsalves Allergy Mild Hives Verified 01/18/20 22:08 Home Medications Medication Instructions Recorded Confirmed Last Taken Type Ibuprofen [Motrin] 600 mg PO Q8H PRN #30 tablet 01/20/20 Unknown Rx oxyCODONE /ACETAMINOPHEN [Percocet 1 tab PO Q6HR PRN #20 tablet 01/20/20 Unknown Rx 5/325] Active Meds: Active Medications Acetaminophen/Hydrocodone Bitart ([place] 5/325) 2 each PO Q6H PRN PRN Reason: Pain, Moderate (4-6) Last Admin: 01/23/20 09:26 Dose: 2 each Documented by: Ephedrine Sulfate (Ephedrine Sulfate) 10 mg IV Q2M PRN PRN Reason: Hypotension Ferrous Sulfate (Feosol) 325 mg PO BID COCO Last Admin: 01/23/20 09:27 Dose: 325 mg Documented by: Fentanyl/Bupivacaine/Sodium Chlor (Fentanyl-Bupiv 2 Mcg/Ml-0.125%) 200 mcg in 100 mls @ 12 mls/hr EPIDURAL TITR COCO; Protocol Last Admin: 01/20/20 08:15 Dose: 12 mls/hr Documented by: Oxytocin/Sodium Chloride (Pitocin/Ns 20 Unit/1000ml Drip) 20 units in 1,000 mls @ 250 mls/hr IV DIRECT COCO Dextrose/Lactated Ringer's (D5lr) 1,000 mls @ 125 mls/hr IV DIRECT COCO Last Admin: 01/20/20 22:35 Dose: 125 mls/hr Documented by: Ibuprofen (Ibuprofen) 800 mg PO Q6H PRN PRN Reason: Pain, Mild (1-3) Last Admin: 01/23/20 07:04 Dose: 800 mg Documented by: Morphine Sulfate (Morphine) 2 mg IV Q4H PRN PRN Reason: Pain, Moderate (4-6) Last Admin: 01/20/20 15:31 Dose: 2 mg Documented by: Morphine Sulfate (Morphine) 4 mg IV Q4H PRN PRN Reason: Pain , Severe (7-10) Last Admin: 01/21/20 07:46 Dose: 4 mg Documented by: Multi-Ingredient Ointment (Lansinoh) 1 applic TP PRN PRN PRN Reason: dryness/cracking Multi-Ingredient Ointment (Lansinoh) 1 applic TP PRN PRN PRN Reason: dryness/cracking Naloxone HCl (Naloxone) 0.2 mg IV Q2MIN PRN PRN Reason: Res Rate </= 8 or 02 SAT < 92% Ondansetron HCl (Zofran) 4 mg IV Q8H PRN PRN Reason: Nausea And Vomiting Promethazine HCl (Phenergan) 25 mg PO Q6H PRN PRN Reason: Nausea And Vomiting Promethazine HCl (Phenergan) 25 mg AL Q6H PRN PRN Reason: Nausea And Vomiting Sodium Chloride (Sodium Chloride Flush Syringe 10 Ml) 10 ml IV PRN PRN PRN Reason: flush Witch Nallely/Glycerin (Tucks Pad) 1 each TP PRN PRN PRN Reason: Hemorrhoids/cleansing/soothing Witch Nallely/Glycerin (Tucks Pad) 1 each TP PRN PRN PRN Reason: Hemorrhoids/cleansing/soothing Review of Systems Constitutional: no weight loss, no weight gain Ears, nose, mouth and throat: no ear pain, no ear discharge Breasts: deferred Cardiovascular: no chest pain, no orthopnea, no palpitations, no edema, no sync ope Respiratory: no cough, no excessive sputum, no hemoptysis Gastrointestinal: no abdominal pain, no nausea, no vomiting Rectal: no incontinence Musculoskeletal: no neck stiffness, no neck pain Integumentary: no rash, no pruritis Neurological: no transient paralysis, no paralysis Psychiatric: no anxiety, no memory loss Endocrine: no heat intolerance, no polyphagia Allergic/Immunologic: no urticaria, no allergic rhinitis Physical Examination Vital Signs Pulse Pulse Ox 79 100 01/18/20 21:48 01/18/20 21:48 General appearance: no acute distress HEENT: Positive: PERRL Neck: Positive: neck supple, trachea midline Cardiac: Positive: Reg Rate and Rhythm Lungs: Positive: Normal Exam, clear to auscultation, Normal Breath Sounds Neuro: Positive: Grossly Intact Abdomen: Positive: Unremarkable, Soft Female genitourinary: deferred Skin: Negative: Rash Extremities: Present: warm. Absent: edema Results 01/21/20 05:30 - Imaging and Cardiology Echo: pending Assessment and Plan 24-year-old female who is postop day 2 of section. Her delivery was uncomplicated. Of note the patient was noted to have a soft murmur on exam. Recommend echocardiogram
[2020-01-24] MEDS: FERROUS SULFATE 325 MG TAB PO SCH (09:49)
[2020-01-24] MEDS: HYDROcodone/ACETAMINOPHEN 5-325 MG TAB PO PRN (09:53)
--- NOTE | 2020-01-24 10:29 | Progress Note ---
Assessment and Plan A: POD #4 Heart Murmur Asymptomatic Anemia P: Follow Routine PostOp Orders Continue PO FESO4 Consult placed for Echocardiogram after discharge RTO in one week D/C home today Subjective - Subjective Date of service: 01/24/20 Principal diagnosis: S/P primary LTCS; POD#3 Interval history: Transferred into care from [place] at 17 weeks; uncomplicated course. Patient reports: appetite normal, voiding normally, pain well controlled, flatus, ambulating normally, other (denies dizziness, SOB, and chest discomfort) [place]: doing well, bottle feeding (and breasfeeding) Objective - Vital Signs Latest vital signs: Vital Signs Temp Pulse Resp BP BP Pulse Ox 01/24/20 08:00 98 F 58 L 20 145/88 01/23/20 23:43 97.9 F 64 18 145/81 100 01/23/20 16:34 20 01/23/20 15:55 98.2 F 68 20 124/73 Intake and Output 01/23/20 01/24/20 01/24/20 22:59 06:59 14:59 Intake Total 320 320 Balance 320 320 Intake: Oral 320 320 Other: Total, Intake Amount 200 320 # Voids Void 1 1 1 - Exam Breasts: Present: normal Cardiovascular: Present: Other (murmur) Abdomen: Present: normal appearance, soft, normal bowel sounds Uterus: Present: normal, firm, fundal height below umbilicus Extremities: Present: normal Incision: Present: normal, dry, intact
--- NOTE | 2020-01-24 10:30 | Discharge Summary ---
Providers - Providers Date of Admission: 01/18/20 21:19 Date of discharge: 01/24/20 Attending physician: RENEE TAYLOR MD 01/22/20 11:37 Consult to Physician [CONS] Routine Comment: Consulting Provider: DEBBIE COLON Physician Instructions: Patient is /postop day 2 Reason For Exam: Heart murmur (new) Primary care physician: RENEE TAYLOR MD Hospitalization Reason for admission: induction of labor Delivery: Procedure: primary low transverse Episiotomy: none Laceration: none Incision: normal, dry, intact Other procedures: none complications: none Discharge diagnosis: IUP at term delivered [place] baby: male Condition at discharge: Good Disposition: DC-01 TO HOME OR SELFCARE Plan - Discharge Medications Prescriptions: Ibuprofen [Motrin] 600 mg PO Q8H PRN #30 tablet PRN Reason: Pain oxyCODONE /ACETAMINOPHEN [Percocet 5/325] 1 tab PO Q6HR PRN #20 tablet PRN Reason: Pain - Provider Discharge Summary Activity: routine, no sex for 6 weeks, no heavy lifting 4 weeks, no strenuous exercise Diet: routine Instructions: routine Additional instructions: [] Smoking cessation referral if applicable(refer to patient education folder for contact #) [] Refer to [facility] Booklet Call your doctor immediately for: * Fever > 100.5 * Heavy vaginal bleeding ( >1 pad per hour) * Severe persistent headache * Shortness of breath * Reddened, hot, painful area to leg or breast * Drainage or odor from incision. * Keep incision clean and dry at all times and follow doctor's instructions regarding bathing/showering - Follow up plan Follow up: RENEE TAYLOR MD [Primary Care Provider] - 7 Days
[2020-01-24 13:50] VITALS: BP 108/59
--- NOTE | 2020-01-24 13:53 | Progress Note ---
Assessment and Plan 24-year-old female who is postop day 2 of section. Her delivery was uncomplicated. Of note the patient was noted to have a soft murmur on exam. tte reviewed - EF 50-55%, no significant abnormalities. Currently stable cardiac status. Nothing further to add from cardiac perspective at this time. Will sign off. The patient has been seen in conjunction with Dr. Cha Pruitt who agrees with the assessment and plan of care. Subjective Date of service: 01/24/20 Principal diagnosis: S/P primary LTCS; POD#3 Interval history: pt resting in bed, no current complaints. Objective Last Vital Signs Temp 98.5 F 01/24/20 13:45 Pulse 74 01/24/20 13:45 Resp 20 01/24/20 13:45 BP 108/59 01/24/20 13:45 Pulse Ox 100 01/23/20 23:43 - Physical Examination General: No Apparent Distress HEENT: Positive: PERRL Neck: Positive: neck supple, trachea midline Cardiac: Positive: Reg Rate and Rhythm, S1/S2 Lungs: Positive: Decreased Breath Sounds Neuro: Positive: Grossly Intact Abdomen: Positive: Unremarkable, Soft Skin: Negative: Rash Extremities: Present: warm. Absent: edema - Imaging and Cardiology Echo: pending
== END 2020-01-24 17:26 | disposition home or self-care (01) | DRG 787 ==
LOC: LD 21:19 → OB 01-20 13:45
PROVIDERS: ADMIT Obstetrics & Gynecology; ATTEND Obstetrics & Gynecology
PROC: 10D00Z1 Extraction of Products of Conception, Low, Open Approach (ICD-10-PCS; principal; 2020-01-20)
PROC: 3E0234Z Introduction of Serum, Toxoid and Vaccine into Muscle, Percutaneous Approach (ICD-10-PCS; 2020-01-22)
DX: O99.354 Diseases of the nervous system complicating childbirth (principal); D62 Acute posthemorrhagic anemia; O76 Abnormality in fetal heart rate and rhythm complicating labor and delivery; G43.909 Migraine, unspecified, not intractable, without status migrainosus; O42.92 Full-term premature rupture of membranes, unspecified as to length of time between rupture and onset of labor; O99.02 Anemia complicating childbirth; Z3A.41 41 weeks gestation of pregnancy; Z37.0 Single live birth; Z82.49 Family history of ischemic heart disease and other diseases of the circulatory system; Z80.9 Family history of malignant neoplasm, unspecified
CPT/HCPCS: 36415; 85014; 85018; 85027; 86592; 86850; 86900; 86901; 90715; 93005; 93306; G0378; J0290; J0595; J0690; J1100; J1200; J1580; J1885; J2210; J2270; J2405; J2590; J2765; J3010; J3490; J7120; J7121